=== PATIENT | female | born 1945 ===

== ENCOUNTER 2021-01-05 11:45 | Inpatient (IN) | payer OTHER ==
[~2021-01-05] VITALS: Ht 157.5 cm; Wt 64.4 kg
[2021-01-05] MEDS ORDERED: FORTAMET500 MG PO (13:07)
[2021-01-05] MEDS ORDERED: GLIPIZIDE XL10 MG PO (13:08)
[2021-01-05] MEDS ORDERED: LEVOXYL88 MCG PO (13:09)
[2021-01-05] MEDS ORDERED: ATACAND32 MG PO (13:09)
[2021-01-05] MEDS ORDERED: VERAPA PO (13:10)
[2021-01-05] MEDS ORDERED: ATORVASTATIN CA20 MG PO (13:10)
[2021-01-05] MEDS ORDERED: CLONAZEPAM0.5 MG PO (13:11)
[2021-01-10] MEDS ORDERED: FAMOTIDINE20 MG (16:19)
[2021-01-10] MEDS ORDERED: BISOPROLOL-HCT1 EAC1 (16:19)
[2021-01-10] MEDS ORDERED: VERAPAMIL ER180 MG (16:20)
[2021-01-13] MEDS ORDERED: TRAMADOL HCL50 MG PO (11:04)
[2021-01-13] MEDS ORDERED: HYOSCYAMINE0.125 M1 SL (11:04)
[2021-01-13] MEDS ORDERED: PROTONIX40 MG PO (11:06)
[2021-01-13] MEDS ORDERED: INTESTINEX680 M1 PO (11:06)
== END 2021-01-13 14:13 | disposition home or self-care (01) | DRG 331 ==
LOC: O/R 01-10 05:25 → SURH 01-10 09:15
PROVIDERS: ADMIT Surgery; ATTEND Surgery
PROC: 07BC4ZX Excision of Pelvis Lymphatic, Percutaneous Endoscopic Approach, Diagnostic (ICD-10-PCS; 2021-01-10)
PROC: 0DTF4ZZ Resection of Right Large Intestine, Percutaneous Endoscopic Approach (ICD-10-PCS; principal; 2021-01-10 09:15)
DX: D12.0 Benign neoplasm of cecum (principal)